=== PATIENT | male | born 1995 | race African-American/Black ===

== ENCOUNTER 2025-04-22 10:49 | Emergency (ER) | payer SELFPAY ==
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
--- NOTE | ~2025-04-22 | CT_ITS ---
EXAMINATION: CT BRAIN W/O DATE: 04/22/2025 12:51 INDICATION: Status post fall. TECHNIQUE: Computed tomography (CT) of the head was performed without intravenous contrast. The dose-length product was 605.33 mGy-cm. Automated exposure control and iterative reconstruction technique were employed. COMPARISON: No prior studies for comparison. FINDINGS: Normal brain parenchymal volume for age. Normal elliott-white differentiation. No acute intracranial hemorrhage, infarction, mass or mass effect. No ventriculomegaly or midline shift. Midline sagittal images demonstrate a normal corpus callosum, craniovertebral junction and sella turcica. Basilar cisterns are patent. There is mild mucosal thickening of the ethmoid and right sphenoid sinus. Mastoids are pneumatized. No depressed skull fractures. IMPRESSION: 1. No acute intracranial abnormality. Reviewed, dictated and finalized at location I. ICE CORRESPONDENT
--- NOTE | ~2025-04-22 | CT_ITS ---
EXAMINATION: CT cervical spine wo con DATE: 04/22/2025 12:51 INDICATION: Status post fall. Neck pain. TECHNIQUE: Computed tomography (CT) of the cervical spine was performed without intravenous contrast. The dose-length product was 272 mGy-cm. COMPARISON: None FINDINGS: Reversal of cervical lordosis, likely due to muscle spasm. Craniovertebral junction is normal. Odontoid process within normal limits. Normal cervical alignment. Vertebral body and disc heights are preserved. No evidence for perched facet. Spinous processes are normal. No significant paraspinal soft tissue abnormality. No foreign bodies. Lung apices are normal. IMPRESSION: 1. No acute abnormality of the cervical spine. Reviewed, dictated and finalized at location I. ERCPA
[2025-04-22 10:55] VITALS: BP 121/88; PULSE 73; RESP 16; TEMP 36.4; O2SAT 99
[2025-04-22] MEDS: ACETAMINOPHEN 500 MG TABLET 1000 MG PO (12:32)
[2025-04-22] MEDS: CYCLOBENZAPRINE HCL 10 MG TABLET PO (12:33)
--- OUTSIDE RECORDS SUMMARY | 2025-04-22 14:16 | XMS_ITS | Encounter Summary ---
Author Organization [facility] Address [address] [place] [address] Care Team Providers Care Pattern Scratcher Name Role Phone Pcp, No Primary Care Provider Unavailabl e Encounter Details Date Type Department Care Team (Late st Contact Info) Description 05/05/2018 Orders Only [facility] Radiology [address] [place] [address] System, Provider Not In, [address] [place] [address] Social History Tobacco Use Types Packs/Day Years Used Date Smoking Tobacco: Never Smokeless Tobacco: Never Alcohol Use Standard Drinks/Week Comments No 0 (1 standard drink = 0.6 oz pur e alcohol) Sex and Gender Information Value Date Recorded Sex Assigned at Not on file Legal Sex Male 7:36 PM PERSONNEL OFFICER Gender Identity Not on file Sexual Orientation Not on file documented as of this encounter Functional Status documented as of this encounter Plan of Treatment Not on file documented as of this encounter Procedures Procedure Name Priority Date/Time Associated Diagnosis Comments OUTSIDE IMAGES 05/05/2018 5:38 PM PERSONNEL OFFICER documented in this encounter Results * Outside Images (05/05/2018 5:38 PM PERSONNEL OFFICER) Anatomical Region Laterality Modality N/A Radiographic Cathy ging 05/05/2018 5:38 PM PERSONNEL OFFICER Narrative 05/05/2018 5:38 PM PERSONNEL OFFICER Image aquired from external facility for exam: Abdomen Procedure Note System, Provider Not In, - 05/05/2018 Image aquired from external facility for exam: Abdomen us Provider Not In System MD [facility] OR DERABLES Final Result documented in this encounter Visit Diagnoses Not on filedocumented in this encounter Care Teams Pattern Scratcher Relationship Specialty Start Date End Date Pcp, No PCP - General 05/31/18 documented as of this encounter
--- OUTSIDE RECORDS SUMMARY | 2025-04-22 14:16 | XMS_ITS | Encounter Summary ---
Author Organization [facility] Address [address] [place] [address] Care Team Providers Care Interior Design Principal Name Role Phone Unavailable Primary Care Provider Unavailabl e Encounter Details Date Type Department Care Team (Latest Contact Info) Description 04/21/2025 Travel Social History Tobacco Use Types Packs/Day Years Used Date Smoking Tobacco: Never Smokeless Tobacco: Never Alcohol Use Standard Drinks/Week Comments Yes 0 (1 standard drink = 0.6 oz pur e alcohol) Occ Sex and Gender Information Value Date Recorded Sex Assigned at Not on file Legal Sex Male 10:12 PM DYER HELPER Gender Identity Not on file Sexual Orientation Not on file documented as of this encounter Functional Status documented as of this encounter Plan of Treatment Not on file documented as of this encounter Visit Diagnoses Not on filedocumented in this encounter
--- OUTSIDE RECORDS SUMMARY | 2025-04-22 14:16 | XMS_ITS | Encounter Summary ---
Author Organization [facility] Address [address] [place] [address] Care Team Providers Care Trailer Park Manager Name Role Phone Pcp, No Primary Care Provider Unavailabl e Encounter Details Date Type Department Care Team (Late st Contact Info) Description 05/05/2018 Orders Only [facility] Radiology [address] [place] [address] System, Provider Not In, [address] [place] [address] Social History Tobacco Use Types Packs/Day Years Used Date Smoking Tobacco: Never Smokeless Tobacco: Never Alcohol Use Standard Drinks/Week Comments No 0 (1 standard drink = 0.6 oz pur e alcohol) Sex and Gender Information Value Date Recorded Sex Assigned at Not on file Legal Sex Male 7:36 PM MEAT SMOKER Gender Identity Not on file Sexual Orientation Not on file documented as of this encounter Functional Status documented as of this encounter Plan of Treatment Not on file documented as of this encounter Procedures Procedure Name Priority Date/Time Associated Diagnosis Comments OUTSIDE IMAGES 05/05/2018 5:18 PM MEAT SMOKER documented in this encounter Results * Outside Images (05/05/2018 5:18 PM MEAT SMOKER) Anatomical Region Laterality Modality N/A Radiographic Cathy ging 05/05/2018 5:18 PM MEAT SMOKER Narrative 05/05/2018 5:18 PM MEAT SMOKER Image aquired from external facility for exam: XR Knee 3 Views Lt Procedure Note System, Provider Not InMD - 05/05/2018 Image aquired from external facility for exam: XR Knee 3 Views Lt us Provider Not In System MD [facility] OR DERABLES Final Result documented in this encounter Visit Diagnoses Not on filedocumented in this encounter Care Teams Trailer Park Manager Relationship Specialty Start Date End Date Pcp, No PCP - General 05/31/18 documented as of this encounter
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
--- OUTSIDE RECORDS SUMMARY | 2025-04-22 14:16 | XMS_ITS | Encounter Summary ---
Author Organization [facility] Address [address] [place] [address] Care Team Providers Care Netbackup Engineer Name Role Phone Pcp, No Primary Care Provider Unavailabl e Encounter Details Date Type Department Care Team (Late st Contact Info) Description 05/05/2018 Orders Only [facility] Radiology [address] [place] [address] System, Provider Not In, [address] [place] [address] Social History Tobacco Use Types Packs/Day Years Used Date Smoking Tobacco: Never Smokeless Tobacco: Never Alcohol Use Standard Drinks/Week Comments No 0 (1 standard drink = 0.6 oz pur e alcohol) Sex and Gender Information Value Date Recorded Sex Assigned at Not on file Legal Sex Male 7:36 PM VEHICLE DAMAGE APPRAISER Gender Identity Not on file Sexual Orientation Not on file documented as of this encounter Functional Status documented as of this encounter Plan of Treatment Not on file documented as of this encounter Procedures Procedure Name Priority Date/Time Associated Diagnosis Comments OUTSIDE IMAGES 05/05/2018 5:20 PM VEHICLE DAMAGE APPRAISER documented in this encounter Results * Outside Images (05/05/2018 5:20 PM VEHICLE DAMAGE APPRAISER) Anatomical Region Laterality Modality N/A Radiographic Cathy ging 05/05/2018 5:20 PM VEHICLE DAMAGE APPRAISER Narrative 05/05/2018 5:20 PM VEHICLE DAMAGE APPRAISER Image aquired from external facility for exam: XR Femur 2 Views Lt Procedure Note System, Provider Not InMD - 05/05/2018 Image aquired from external facility for exam: XR Femur 2 Views Lt us Provider Not In System MD [facility] OR DERABLES Final Result documented in this encounter Visit Diagnoses Not on filedocumented in this encounter Care Teams Netbackup Engineer Relationship Specialty Start Date End Date Pcp, No PCP - General 05/31/18 documented as of this encounter
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
--- OUTSIDE RECORDS SUMMARY | 2025-04-22 14:17 | XMS_ITS | Clinical Summary ---
Author Organization [facility] Address [address] [place] [id number] Care Team Providers Care Bobbin Sorter Name Role Phone No, Physician Primary Care Provider [phone] Allergies No known active allergies Medications ketorolac (TORADOL) 10 mg tablet Take 1 tablet (10 mg total) by mouth every 6 (six) hours as needed for pain 20 tablet 5 Active lidocaine (LIDODERM) 5 % Place 1 patch on the skin daily for 12 hours Remove & discard patch(es) within 12 hours or as directed by MD 7 patch 5 Active predniSONE (DELTASONE) 20 mg tablet Take 2 tablets (40 mg) by mouth daily for 5 days 10 tablet 5 04/19/20 25 Encounters Date Type Department Care Team Description 04/14/2025 2:16 PM PURCHASE ANALYST - 04/14/2025 4:50 PM PURCHASE ANALYST Emergency [facility] [address] [place] [id number] Neck pain (Primary Dx) Discharge Disposition: Discharge to home or self care from Last 3 Months Social History Tobacco Use Types Packs/Day Years Used Date Smoking Tobacco: Never Assessed Personal Safety Answer Date Recorded Have you ever been in or are you currently in a harmful physical or emotional relationship or is someone making you feel afraid or unsafe? Denies 04/14/2025 Sex and Gender Information Value Date Recorded Sex Assigned at Not on file Legal Sex Male 1:09 PM PURCHASE ANALYST Gender Identity Not on file Sexual Orientation Not on file Last Filed Vital Signs Vital Sign Reading Time Taken Comments Blood Pressure 118/78 04/14/2025 4:30 PM PURCHASE ANALYST Pulse 63 04/14/2025 4:30 PM PURCHASE ANALYST Temperature 36.3 C (97.4 F) 04/14/2025 1:11 PM PURCHASE ANALYST Respiratory Rate 20 04/14/2025 4:30 PM PURCHASE ANALYST Oxygen Saturation 100% 04/14/2025 4:30 PM PURCHASE ANALYST Inhaled Oxygen Concentration - - Weight 73.9 kg (162 lb 14.7 oz) 04/14/2025 1:11 PM PURCHASE ANALYST Height - - Body Mass Index - - Plan of Treatment Health Maintenance Due Date Last Done Comments Depression Screening 1996 Hepatitis C Screening 1996 Varicella Vaccines (2 of 2 - 2-dose childhood series) 04/16/2001 01/22/2001 Regular Well Visit/Exam 18-64 2014 HPV Vaccines (1 - 3-dose SCDM series) 2023 Influenza Vaccine (#1) 2025 DTaP/Tdap/Td Vaccine (10 - Td or Tdap) 04/13/2035 04/13/2025, 12/07/2019, 05/05/2018, Additional history exists Hepatitis B Screening Completed 10/28/1997 , 1996, 1996 Pneumococcal vaccine <65 Aged Out No longer eligible based on patient's age to complete this topic Procedures Procedure Name Priority Date/Time Associated Diagnosis Comments EGFR STAT 04/14/2025 3:52 PM PURCHASE ANALYST DIFFERENTIAL AUTO STAT 04/14/2025 3:5 2 PM PURCHASE ANALYST COMPREHENSIVE METABOLIC PANEL STAT 04/14/2025 3:52 PM PURCHASE ANALYST CBC WITH AUTO DIFFERENTIAL STAT 04/14/2025 3:52 PM PURCHASE ANALYST from Last 3 Months Results * eGFR (04/14/2025 3:52 PM PURCHASE ANALYST) eGFR >90 >=60 mL/min/1. 73 m2 Comment: Interpretive Data Reference Interval Normal >/= 90 mL/min/1.73m2 Mildly decreased* 60 - 89 mL/min/1.73m2 Mildly to moderately decreased 45 - 59 mL/min/1.73m2 Moderately to severely decreased 30 - 44 mL/min/1.73m2 Severely decreased 15 - 29 mL/min/1.73m2 Kidney Failure < 15 mL/min/1.73m2 *Relative to young adult level Estimated glomerular filtration rate is determined by the 2020 CKD-EPI equation recommended by the National Kidney Foundation (A Unifying Approach to GFR Estimation: Recommendations of the NKF-ASK Task Force on Reassessing the Inclusion of Race in Diagnosing Kidney Disease, JASN 2020). The CKD-EPI equation should not be used for patients with unstable renal function and has not been validated in children and those over 70. Current interpretive data was last reviewed 2021. Testing performed by: [address] [address] Blood 04/14/2025 3:52 PM PURCHASE ANALYST 04/14/2025 3:57 PM PURCHASE ANALYST us Renita WATTERS LAB BLOOD ORDERABLES Final Resu lt [facility] Department [place] [address] * Differential, auto (04/14/2025 3:52 PM PURCHASE ANALYST) Neutrophil abs 5.37 1.50 - 6.50 K/cumm Comment:Testing performed by : [address] [address] Imm gran abs 0.03 0.00 - 0.10 K/cumm JAKE Comment:Testing performed by : [address] [address] Lymphocyte abs 1.90 0.80 - 3.30 K/cumm JAKE Comment:Testing performed by : [address] [address] Monocyte abs 0.60 0.20 - 0.80 K/cumm JAKE Comment:Testing performed by : [address] [address] Eosinophil abs 0.16 0.00 - 0.50 K/cumm JAKE Comment:Testing performed by : [address] [address] Basophil abs 0.04 0.00 - 0.10 K/cumm JAKE Comment:Testing performed by : [address] [address] Neutrophil pct 66.2 % JAKE Comment: Interpretive Data Percent cell count reference ranges are not reported, since discordance with absolute values may lead to misinterpretation of CBC data. Current Interpretive Data was last revised on 2017. Testing performed by: [address] [address] Imm gran pct 0.4 % [facility] Comment: Interpretive Data Percent cell count reference ranges are not reported, since discordance with absolute values may lead to misinterpretation of CBC data. Current Interpretive Data was last revised on 2017. Testing performed by: [address] [address] Lymphocyte pct 23.5 % [facility] Comment: Interpretive Data Percent cell count reference ranges are not reported, since discordance with absolute values may lead to misinterpretation of CBC data. Current Interpretive Data was last revised on 2017. Testing performed by: [address] [address] Monocyte pct 7.4 % [facility] Comment: Interpretive Data Percent cell count reference ranges are not reported, since discordance with absolute values may lead to misinterpretation of CBC data. Current Interpretive Data was last revised on 2017. Testing performed by: [address] [address] Eosinophil pct 2.0 % [facility] Comment: Interpretive Data Percent cell count reference ranges are not reported, since discordance with absolute values may lead to misinterpretation of CBC data. Current Interpretive Data was last revised on 2017. Testing performed by: [address] [address] Basophil pct 0.5 % [facility] Comment: Interpretive Data Percent cell count reference ranges are not reported, since discordance with absolute values may lead to misinterpretation of CBC data. Current Interpretive Data was last revised on 2017. Testing performed by: [address] [address] Blood 04/14/2025 3:52 PM PURCHASE ANALYST 04/14/2025 3:57 PM PURCHASE ANALYST us Renita WATTERS LAB BLOOD ORDERABLES Final Resu lt [facility] [address] [facility] Department [place] [address] * CBC with auto differential (04/14/2025 3:52 PM PURCHASE ANALYST) Pathologist [facility] WBC 8.10 3.80 - 9.90 K/cumm Comment:Testing performed by : [address] [address] Hgb 14.1 13.0 - 17.5 g/dL JAKE Comment:Testing performed by : [address] [address] Hct 43.5 38.9 - 50.3 % JAKE Comment:Testing performed by : [address] [address] Plt 247 150 - 400 K/cumm JAKE Comment:Testing performed by : [address] [address] MPV 11.1 9.1 - 12.3 fL JAKE Comment:Testing performed by : [address] [address] RBC 4.77 4.30 - 5.80 M/cumm JAKE Comment:Testing performed by : [address] [address] MCV 91.2 81.3 - 96.4 fL JAKE Comment:Testing performed by : [address] [address] MCH 29.6 27.1 - 33.3 pg JAKE CRAFT Comment:Testing performed by : [address] [address] MCHC 32.4 32.3 - 35.7 g/dL JAKE Comment:Testing performed by : [address] [address] RDW CV 12.9 11.1 - 14.9 % JAKE CRAFT Comment:Testing performed by : [address] [address] RDW SD 42.7 35.7 - 48.1 fL JAKE CRAFT Comment:Testing performed by : [address] [address] NRBC abs 0.00 0.00 - 0.01 K/cumm JAKE CRAFT Comment:Testing performed by : [address] [address] Blood 04/14/2025 3:52 PM PURCHASE ANALYST 04/14/2025 3:57 PM PURCHASE ANALYST us Renita WATTERS LAB BLOOD ORDERABLES Final Resu lt [facility] CRAFT [address] [facility] Department [place] [address] * Comprehensive metabolic panel (04/14/2025 3:52 PM PURCHASE ANALYST) Sodium 141 135 - 145 mmol/L Comment:Testing performed by : [address] [address] Potassium, pl 4.0 3.3 - 4.9 mmol/L JAKE CRAFT Comment:Testing performed by : [address] [address] Chloride 105 97 - 110 mmol/L JAKE CRAFT Comment:Testing performed by : [address] [address] CO2 28 22 - 32 mmol/L JAKE CRAFT Comment:Testing performed by : [address] [address] Anion gap 8 2 - 15 mmol/L [facility]KE CRAFT Comment:Testing performed by : [address] [address] BUN 15 6 - 25 mg/dL JAKE CRAFT Comment:Testing performed by : [address] [address] Creatinine 0.90 0.80 - 1.30 mg/dL JAKE CRAFT Comment:Testing performed by : [address] [address] Glucose 103 70 - 199 mg/dL JAKE Comment: Interpretive Data Fasting glucose >/= 126 mg/dl is diagnostic for diabetes. Fasting is defined as no caloric intake for at least 8 hours. Fasting glucose between 100 mg/dl to 125 mg/dl is diagnostic of prediabetes. In a patient with classic symptoms of hyperglycemia or hyperglycemic crisis, a random glucose >/= 200 mg/dl is diagnostic for diabetes. In the absence of unequivocal hyperglycemia, results should be confirmed by repeat testing. The classification and Diagnosis of Diabetes Diabetes Care 2021; 46: S19-S40. Current interpretive data was last revised 2022. Testing performed by: [address] [address] Calcium 9.3 8.5 - 10.3 mg/dL JAKE Comment:Testing performed by : [address] [address] Bilirubin, total 0.2 0.1 - 1.2 mg/dL JAKE Comment:Testing performed by : [address] [address] Protein, pl 7.0 6.5 - 8.5 g/dL [facility] Comment:Testing performed by : [address] [address] Albumin 4.5 3.5 - 5.0 g/dL [facility] Comment:Testing performed by : [address] [address] Alk phos 81 40 - 130 Units/L JAKE Comment:Testing performed by : [address] [address] ALT 48 7 - 55 Units/L JAKE Comment:Testing performed by : [address] [address] AST 28 10 - 50 Units/L JAKE Comment:Testing performed by : [address] [address] Blood 04/14/2025 3:52 PM PURCHASE ANALYST 04/14/2025 3:57 PM PURCHASE ANALYST us Renita WATTERS LAB BLOOD ORDERABLES Final Resu lt [facility] [address] [facility] Department [place] [address] from Last 3 Months Insurance MRA Care Teams Bobbin Sorter Relationship Specialty Start Date End Date No, Physician PCP - General 04/14/25
--- OUTSIDE RECORDS SUMMARY | 2025-04-22 14:17 | XMS_ITS | Encounter Summary ---
Author Organization [facility] Address [address] [place] [address] Care Team Providers Care Border Measurer Name Role Phone Pcp, No Primary Care Provider Unavailabl e Encounter Details Date Type Department Care Team (Late st Contact Info) Description 05/31/2018 Orders Only [facility] Radiology [address] [place] [address] System, Provider Not In, [address] [place] [address] Social History Tobacco Use Types Packs/Day Years Used Date Smoking Tobacco: Never Smokeless Tobacco: Never Alcohol Use Standard Drinks/Week Comments No 0 (1 standard drink = 0.6 oz pur e alcohol) Sex and Gender Information Value Date Recorded Sex Assigned at Not on file Legal Sex Male 7:36 PM REGISTERED RADIOLOGIC TECHNOLOGIST Gender Identity Not on file Sexual Orientation Not on file documented as of this encounter Plan of Treatment Not on file documented as of this encounter Procedures Procedure Name Priority Date/Time Associated Diagnosis Comments OUTSIDE IMAGES 05/31/2018 11:05 AM REGISTERED RADIOLOGIC TECHNOLOGIST documented in this encounter Results * Outside Images (05/31/2018 11:05 AM REGISTERED RADIOLOGIC TECHNOLOGIST) Anatomical Region Laterality Modality N/A Radiographic Cathy ging 05/31/2018 11:0 5 AM REGISTERED RADIOLOGIC TECHNOLOGIST Narrative 05/31/2018 11:05 AM REGISTERED RADIOLOGIC TECHNOLOGIST Historic images from [facility] exist and can be viewed by using the hyperlink to access [employer] pacs: FEMUR L Procedure Note System, Provider Not In, - 01/17/2019 Historic images from [facility] exist and can be viewed byusing the hyperlink to access [employer] pacs: FEMUR L us Provider Not In System MD [facility] Final Result documented in this encounter Visit Diagnoses Not on filedocumented in this encounter Care Teams Border Measurer Relationship Specialty Start Date End Date Pcp, No PCP - General 05/31/18 documented as of this encounter
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
== END 2025-04-22 13:47 | disposition home or self-care (01) ==
DX: S09.90XA Unspecified injury of head, initial encounter (principal); W00.0XXA Fall on same level due to ice and snow, initial encounter
CPT/HCPCS: 70450; 72125; 99284; A9270